=== PATIENT | male | born 1970 | race African-American/Black ===

== ENCOUNTER 2018-04-24 10:03 | Emergency (ER) | payer MEDICAID ==
[~2018-04-24] VITALS: Ht 172.7 cm; Wt 95.0 kg
[2018-04-24] MEDS ORDERED: KETOROLAC 30MG/ML VIAL IV STA (17:55)
[2018-04-24] MEDS ORDERED: SODIUM CHLORIDE 0.9% 1,000 ML IV ONE (17:55)
[2018-04-24] MEDS ORDERED: METOCLOPRAMIDE HCL 10MG/2ML VIAL IV ONE (18:00)
[2018-04-24 20:46] VITALS: BP 133/89
== END 2018-04-24 20:48 | disposition home or self-care (01) ==
LOC: ER 10:03
DX: R51 Headache (principal)
CPT/HCPCS: 96374; 96375; 99283; J1885; J2765; J7030